=== PATIENT | male | born 1970 | race Caucasian/White ===

== ENCOUNTER 2021-07-24 09:28 | Day surgery (SDC) | payer OTHER | END 2021-07-24 14:40 | disposition home or self-care (01) | LOC: AMB-ENDOS 09:28 | PROVIDERS: ATTEND Surgery | DX: K64.8 Other hemorrhoids (principal); K57.30 Diverticulosis of large intestine without perforation or abscess without bleeding; K52.89 Other specified noninfective gastroenteritis and colitis; Z20.822 Contact with and (suspected) exposure to COVID-19 ==